=== PATIENT | male | born 2000 | race Caucasian/White ===

== ENCOUNTER 2019-02-26 02:34 | Emergency (ER) | payer OTHER ==
[~2019-02-26] VITALS: Ht 182.9 cm; Wt 59.9 kg
[2019-02-26 02:44] VITALS: BP 123/58; Ht 182.9 cm; Wt 59.9 kg
== END 2019-02-26 06:52 | disposition home or self-care (01) ==
LOC: ED 02:34
DX: H10.12 Acute atopic conjunctivitis, left eye (principal)
CPT/HCPCS: J7512